=== PATIENT | male | born 1955 | race Caucasian/White ===

== ENCOUNTER 2021-02-10 06:52 | Inpatient (IN) | payer MEDICARE, MEDICAID ==
[~2021-02-10] VITALS: Ht 167.6 cm; Wt 93.2 kg
[~2021-02-10 06:52] MED LIST: ALBU8HFA IH; AMLO-257 PO; AMOX1TAB16 PO; BUDE10.26 PO; BUDESONIDE IH; LEVO150 PO; MELA3TAB89 PO; MIRT-89 PO; PRED10 PO; TIOT185 IH
[2021-02-10] MEDS ORDERED: ALBUTEROL SULFATE 5 MG/ML 20 ML NEB SOLN [BULK] NEB ONE (07:00)
[2021-02-10] MEDS ORDERED: IPRATROPIUM BROMIDE 0.5 MG/2.5 ML NEB SOLUTION NEB ONE (07:00)
[2021-02-10] MEDS ORDERED: MethylPREDNISolone SOD SUCC 125 MG/2 ML VIAL IVP ONE (07:00)
[2021-02-10 07:28] LABS: EOSINOPHILS % (AUTO) 0.4 % (1.0-6.0); HEMOGLOBIN 14.7 g/dL (13.5-17.5); LYMPHOCYTES # (AUTO) 1.3 K/uL (1.0-4.8); LYMPHOCYTES % (AUTO) 11.8 % (22.0-44.0); MEAN CORPUSCULAR HEMOGLOBIN 30.6 pg (26.0-34.0); MEAN CORPUSCULAR VOLUME 96 fL (80-100); MONOCYTES # (AUTO) 0.8 K/uL (0.1-1.0); MONOCYTES % (AUTO) 7.5 % (2.0-9.0); NEUTROPHILS # (AUTO) 8.9 K/uL (1.8-7.7); NEUTROPHILS % (AUTO) 79.3 % (40.0-70.0); PLATELET COUNT (AUTO) 168 K/uL (150-450); RED CELL DISTRIBUTION WIDTH 14.8 % (11.5-14.5)
[2021-02-10 07:38] LABS: ALANINE AMINOTRANSFERASE 15 U/L (12-78); ALBUMIN 3.6 g/dL (3.4-5.0); ALKALINE PHOSPHATASE 99 U/L (46-116); ANION GAP 2 mmol/L (8-16); ASPARTATE AMINOTRANSFERASE 12 U/L (15-37); BILIRUBIN,TOTAL 0.2 mg/dL (0.1-1.0); CALCIUM, TOTAL 9.1 mg/dL (8.8-10.5); CHLORIDE 106 mmol/L (98-107); CREATININE 0.61 mg/dL (0.60-1.30); GLOMERULAR FILTR. RATE CALC > 60 mL/min (>60); GLUCOSE,RANDOM 118 mg/dL (70-110); POTASSIUM 4.2 mmol/L (3.5-5.1); SODIUM SERUM 151 mmol/L (136-145); TOTAL PROTEIN, SERUM 7.7 g/dL (6.4-8.2); UREA NITROGEN, BLOOD 19 mg/dL (7-18)
[2021-02-10 07:42] LABS: B-TYPE NATRIURETIC PEPTIDE 53 pg/mL (0-100)
[2021-02-10] MEDS ORDERED: SODIUM CHLORIDE 0.9% 250 ML IV ONE (07:43)
[2021-02-10 07:44] LABS: CARBON DIOXIDE 43 mmol/L (22-29)
[2021-02-10] MEDS ORDERED: CefTRIAXone 1 GM/DEXTROSE 50 ML IV ONE (07:45)
[2021-02-10] MEDS ORDERED: AZITHROMYCIN 500 MG/NS 250 ML IV ONE (07:45)
[2021-02-10 07:55] LABS: COVID AG,FIA SOURCE NASOPHARYNGEAL
[2021-02-10] MEDS ORDERED: ONDANSETRON HCL 4 MG/2 ML VIAL IVP PRN ×2 (08:15→08:30)
[2021-02-10] MEDS ORDERED: ACETAMINOPHEN 325 MG TABLET PO PRN (08:15)
[2021-02-10] MEDS ORDERED: BISACODYL 10 MG RECTAL RECTAL SUPPOSITORY PR PRN (08:30)
[2021-02-10] MEDS ORDERED: DEXTROSE 5%-WATER 1,000 ML IV ONE (08:30)
[2021-02-10 08:50] LABS: THYROID STIMULATING HORMONE 3.85 uIU/mL (0.36-3.74)
[2021-02-10] MEDS: PANTOPRAZOLE SODIUM 40 MG/VIAL IVP SCH (08:54)
[2021-02-10 10:04] VITALS: BP 137/83
[2021-02-10] MEDS: MethylPREDNISolone SOD SUCC 125 MG/2 ML VIAL IVP SCH ×3 (12:00→23:04)
[2021-02-10 12:03] VITALS: BP 149/83
[2021-02-10] MEDS: HEPARIN SODIUM,PORCINE 5,000 UNITS/ML VIAL SQ SCH ×2 (17:15→23:05)
[2021-02-10 18:14] VITALS: BP 134/60
[2021-02-10 19:15] VITALS: BP 131/67
[2021-02-10 23:40] VITALS: BP 140/79
[2021-02-11 04:15] VITALS: BP 148/84
[2021-02-11] MEDS: MethylPREDNISolone SOD SUCC 125 MG/2 ML VIAL IVP SCH ×4 (05:06→23:13)
[2021-02-11 07:47] VITALS: BP 158/98
[2021-02-11] MEDS: HEPARIN SODIUM,PORCINE 5,000 UNITS/ML VIAL SQ SCH ×3 (08:45→23:13)
[2021-02-11] MEDS: PANTOPRAZOLE SODIUM 40 MG/VIAL IVP SCH (08:45)
[2021-02-11] MEDS: AZITHROMYCIN 500 MG/NS 250 ML IV SCH (08:46)
[2021-02-11 10:27] LABS: ABG METHEMOGLOBIN 0.3 % (0.0-1.5); ABG OXYGEN CONTENT 18.6 mL/dL (15.0-23.0); SOURCE, BLOOD GAS ARTERIAL; TEMPERATURE, FAHRENHEIT, BG 98.6 FAHREN (96.0-98.6)
[2021-02-11 10:33] LABS: ABG A-A DIFF O2 446.8 mmHg (10-20.0); ABG BASE EXCESS 11.2 mmol/L (-2.0-3.0); ABG CARBOXYHEMOGLOBIN 1.1 % (0.0-1.5); ABG HCO3 31.4 mmol/L (22.0-26.0); ABG OXYGEN SATURATION 94.2 % (95.0-98.0); ABG OXYHEMOGLOBIN 92.9 % (94.0-100.0); ABG PH 7.268 (7.35-7.450); ABG TOTAL HEMOGLOBIN 14.2 G/dL (12.0-18.0); PO2, ARTERIAL BG 70.8 mmHg (79.0-87.0)
[2021-02-11 10:35] LABS: ABG PCO2 85 mmHg (35-45); SITE, BLOOD GAS RT RADIAL
[2021-02-11 10:36] LABS: O2 DEVICE,BLOOD GAS HI FL CANNULA (ROOM AIR)
[2021-02-11] MEDS: CefTRIAXone SODIUM 2 GM in DEXTROSE 5%-WATER 50 ML IV SCH (11:17)
[2021-02-11] MEDS: IPRATROPIUM BROMIDE 0.5 MG/2.5 ML NEB SOLUTION NEB PRN (11:34)
[2021-02-11] MEDS: ALBUTEROL SULFATE 2.5 MG/0.5 ML NEB SOLUTION NEB PRN (11:34)
[2021-02-11 11:39] VITALS: BP 153/96
[2021-02-11 13:48] LABS: ANION GAP 1 mmol/L (8-16); CALCIUM, TOTAL 8.7 mg/dL (8.8-10.5); CARBON DIOXIDE 40 mmol/L (22-29); CHLORIDE 104 mmol/L (98-107); CREATININE 0.65 mg/dL (0.60-1.30); GLOMERULAR FILTR. RATE CALC > 60 mL/min (>60); GLUCOSE,RANDOM 129 mg/dL (70-110); POTASSIUM 4.8 mmol/L (3.5-5.1); SODIUM SERUM 145 mmol/L (136-145); UREA NITROGEN, BLOOD 23 mg/dL (7-18)
[2021-02-11 15:56] VITALS: BP 142/97
[2021-02-11 20:18] VITALS: BP 160/111
[2021-02-11 23:32] VITALS: BP 158/98
[2021-02-12] MEDS: MethylPREDNISolone SOD SUCC 125 MG/2 ML VIAL IVP SCH ×4 (05:24→23:58)
[2021-02-12 05:28] VITALS: BP 152/93
[2021-02-12 07:44] VITALS: BP 153/102
[2021-02-12] MEDS: HEPARIN SODIUM,PORCINE 5,000 UNITS/ML VIAL SQ SCH ×3 (08:57→23:57)
[2021-02-12] MEDS: AZITHROMYCIN 500 MG/NS 250 ML IV SCH (08:58)
[2021-02-12] MEDS: PANTOPRAZOLE SODIUM 40 MG/VIAL IVP SCH (08:58)
[2021-02-12] MEDS: CefTRIAXone SODIUM 2 GM in DEXTROSE 5%-WATER 50 ML IV SCH (10:33)
[2021-02-12 11:55] VITALS: BP 152/95
[2021-02-12] MEDS: FAMOTIDINE 20 MG TABLET PO SCH ×2 (12:03→20:43)
[2021-02-12] MEDS: MULTIVITAMINS WITH MINERALS, THERAPEUTIC TABLET PO SCH (12:03)
[2021-02-12 15:26] VITALS: BP 150/93
[2021-02-12 19:59] VITALS: BP 158/105
[2021-02-13] VITALS (7 sets, daily range): BP systolic 139–155; BP diastolic 82–97
[2021-02-13] MEDS: MethylPREDNISolone SOD SUCC 125 MG/2 ML VIAL IVP SCH ×4 (05:45→23:41)
[2021-02-13] MEDS: FAMOTIDINE 20 MG TABLET PO SCH ×2 (08:43→20:02)
[2021-02-13] MEDS: AZITHROMYCIN 500 MG/NS 250 ML IV SCH (08:43)
[2021-02-13] MEDS: MULTIVITAMINS WITH MINERALS, THERAPEUTIC TABLET PO SCH (08:43)
[2021-02-13] MEDS: HEPARIN SODIUM,PORCINE 5,000 UNITS/ML VIAL SQ SCH ×3 (08:44→23:40)
[2021-02-13] MEDS: PANTOPRAZOLE SODIUM 40 MG/VIAL IVP SCH (08:53)
[2021-02-13] MEDS: ALBUTEROL SULFATE 2.5 MG/0.5 ML NEB SOLUTION NEB PRN (09:54)
[2021-02-13] MEDS: IPRATROPIUM BROMIDE 0.5 MG/2.5 ML NEB SOLUTION NEB PRN (09:54)
[2021-02-13] MEDS: CefTRIAXone SODIUM 2 GM in DEXTROSE 5%-WATER 50 ML IV SCH (10:56)
[2021-02-14 04:04] VITALS: BP 152/84
[2021-02-14] MEDS: MethylPREDNISolone SOD SUCC 125 MG/2 ML VIAL IVP SCH ×2 (05:35→13:17)
[2021-02-14 07:36] VITALS: BP 144/73
[2021-02-14] MEDS: AZITHROMYCIN 500 MG/NS 250 ML IV SCH (09:00)
[2021-02-14] MEDS: MULTIVITAMINS WITH MINERALS, THERAPEUTIC TABLET PO SCH (09:02)
[2021-02-14] MEDS: FAMOTIDINE 20 MG TABLET PO SCH ×2 (09:04→20:57)
[2021-02-14] MEDS: PANTOPRAZOLE SODIUM 40 MG/VIAL IVP SCH (09:06)
[2021-02-14] MEDS: HEPARIN SODIUM,PORCINE 5,000 UNITS/ML VIAL SQ SCH ×3 (09:06→23:15)
[2021-02-14] MEDS: CefTRIAXone SODIUM 2 GM in DEXTROSE 5%-WATER 50 ML IV SCH (11:05)
[2021-02-14 11:37] VITALS: BP 159/89
[2021-02-14] MEDS: IPRATROPIUM BROMIDE 0.5 MG/2.5 ML NEB SOLUTION NEB PRN (14:48)
[2021-02-14] MEDS: ALBUTEROL SULFATE 2.5 MG/0.5 ML NEB SOLUTION NEB PRN (14:48)
[2021-02-14 15:52] VITALS: BP 155/89
[2021-02-14] MEDS: MethylPREDNISolone SOD SUCC 40 MG/ML VIAL IVP SCH ×2 (19:48→23:16)
[2021-02-14 20:02] VITALS: BP 147/85
[2021-02-15] VITALS (7 sets, daily range): BP systolic 129–167; BP diastolic 1–100
[2021-02-15] MEDS: MethylPREDNISolone SOD SUCC 40 MG/ML VIAL IVP SCH ×4 (05:25→23:32)
[2021-02-15] MEDS: ACETAMINOPHEN 325 MG TABLET PO PRN ×2 (05:33→12:07)
[2021-02-15] MEDS: MULTIVITAMINS WITH MINERALS, THERAPEUTIC TABLET PO SCH (08:19)
[2021-02-15] MEDS: FAMOTIDINE 20 MG TABLET PO SCH ×2 (08:19→20:56)
[2021-02-15] MEDS: HEPARIN SODIUM,PORCINE 5,000 UNITS/ML VIAL SQ SCH ×3 (08:20→23:32)
[2021-02-15] MEDS: PANTOPRAZOLE SODIUM 40 MG/VIAL IVP SCH (08:20)
[2021-02-15] MEDS: AZITHROMYCIN 500 MG/NS 250 ML IV SCH (08:29)
[2021-02-15] MEDS: CefTRIAXone SODIUM 2 GM in DEXTROSE 5%-WATER 50 ML IV SCH (10:24)
[2021-02-16] VITALS (8 sets, daily range): BP systolic 137–155; BP diastolic 81–106
[2021-02-16] MEDS: ALBUTEROL SULFATE 2.5 MG/0.5 ML NEB SOLUTION NEB PRN ×3 (01:33→19:58)
[2021-02-16] MEDS: IPRATROPIUM BROMIDE 0.5 MG/2.5 ML NEB SOLUTION NEB PRN ×3 (01:33→19:59)
[2021-02-16] MEDS: MethylPREDNISolone SOD SUCC 40 MG/ML VIAL IVP SCH ×3 (05:29→17:45)
[2021-02-16] MEDS: PANTOPRAZOLE SODIUM 40 MG/VIAL IVP SCH (08:53)
[2021-02-16] MEDS: MULTIVITAMINS WITH MINERALS, THERAPEUTIC TABLET PO SCH (08:53)
[2021-02-16] MEDS: FAMOTIDINE 20 MG TABLET PO SCH ×2 (08:53→20:37)
[2021-02-16] MEDS: HEPARIN SODIUM,PORCINE 5,000 UNITS/ML VIAL SQ SCH ×2 (08:53→15:18)
[2021-02-16] MEDS: AZITHROMYCIN 500 MG/NS 250 ML IV SCH (08:56)
[2021-02-16] MEDS: CefTRIAXone SODIUM 2 GM in DEXTROSE 5%-WATER 50 ML IV SCH (11:05)
[2021-02-17] MEDS: MethylPREDNISolone SOD SUCC 40 MG/ML VIAL IVP SCH ×4 (00:41→18:46)
[2021-02-17] MEDS: HEPARIN SODIUM,PORCINE 5,000 UNITS/ML VIAL SQ SCH ×3 (00:41→16:12)
[2021-02-17 04:39] VITALS: BP 144/88
[2021-02-17 07:17] VITALS: BP 148/82
[2021-02-17] MEDS: MULTIVITAMINS WITH MINERALS, THERAPEUTIC TABLET PO SCH (08:36)
[2021-02-17] MEDS: FAMOTIDINE 20 MG TABLET PO SCH ×2 (08:36→21:46)
[2021-02-17] MEDS: PANTOPRAZOLE SODIUM 40 MG/VIAL IVP SCH (08:36)
[2021-02-17] MEDS: AZITHROMYCIN 500 MG/NS 250 ML IV SCH (08:37)
[2021-02-17] MEDS: CefTRIAXone SODIUM 2 GM in DEXTROSE 5%-WATER 50 ML IV SCH (10:20)
[2021-02-17 11:06] VITALS: BP 145/90
[2021-02-17] MEDS ORDERED: HALOPERIDOL 5 MG TABLET PO ONE (11:30)
[2021-02-17 15:44] VITALS: BP 154/97
[2021-02-17 20:01] VITALS: BP 159/99
[2021-02-17 23:48] VITALS: BP 135/80
[2021-02-18] MEDS: HEPARIN SODIUM,PORCINE 5,000 UNITS/ML VIAL SQ SCH ×3 (00:37→16:14)
[2021-02-18] MEDS: MethylPREDNISolone SOD SUCC 40 MG/ML VIAL IVP SCH ×3 (00:37→12:35)
[2021-02-18 04:30] VITALS: BP 136/91
[2021-02-18 07:35] VITALS: BP 173/94
[2021-02-18 09:40] VITALS: BP 168/104
[2021-02-18] MEDS: PANTOPRAZOLE SODIUM 40 MG/VIAL IVP SCH (09:52)
[2021-02-18] MEDS: MULTIVITAMINS WITH MINERALS, THERAPEUTIC TABLET PO SCH (09:53)
[2021-02-18] MEDS: FAMOTIDINE 20 MG TABLET PO SCH (09:53)
[2021-02-18] MEDS: CefTRIAXone SODIUM 2 GM in DEXTROSE 5%-WATER 50 ML IV SCH (10:19)
[2021-02-18] MEDS: AZITHROMYCIN 500 MG/NS 250 ML IV SCH (10:19)
[2021-02-18] MEDS: IPRATROPIUM BROMIDE 0.5 MG/2.5 ML NEB SOLUTION NEB PRN (10:23)
[2021-02-18] MEDS: ALBUTEROL SULFATE 2.5 MG/0.5 ML NEB SOLUTION NEB PRN (10:23)
[2021-02-18 11:45] VITALS: BP 139/85
[2021-02-18 12:50] LABS: GLUCOMETER DEV NAME(LOC) 5N.1C; GLUCOSE,POINT OF CARE 149 MG/DL (70-110)
[2021-02-18] MEDS ORDERED: IPRAHFA IH (13:42)
[2021-02-18] MEDS ORDERED: FLUT1BLS10 IH (13:52)
== END 2021-02-18 16:40 | disposition hospice, home (50) | DRG 189 ==
LOC: EMS 06:53 → 5S 09:09
PROVIDERS: ADMIT Internal Medicine; ATTEND Internal Medicine
PROC: 5A09357 Assistance with Respiratory Ventilation, Less than 24 Consecutive Hours, Continuous Positive Airway Pressure (ICD-10-PCS; principal; 2021-02-10)
PROC: 5A09357 Assistance with Respiratory Ventilation, Less than 24 Consecutive Hours, Continuous Positive Airway Pressure (ICD-10-PCS; 2021-02-11)
PROC: 5A09357 Assistance with Respiratory Ventilation, Less than 24 Consecutive Hours, Continuous Positive Airway Pressure (ICD-10-PCS; 2021-02-12)
PROC: 5A09357 Assistance with Respiratory Ventilation, Less than 24 Consecutive Hours, Continuous Positive Airway Pressure (ICD-10-PCS; 2021-02-13)
PROC: 5A09357 Assistance with Respiratory Ventilation, Less than 24 Consecutive Hours, Continuous Positive Airway Pressure (ICD-10-PCS; 2021-02-14)
PROC: 5A09357 Assistance with Respiratory Ventilation, Less than 24 Consecutive Hours, Continuous Positive Airway Pressure (ICD-10-PCS; 2021-02-15)
PROC: 5A09357 Assistance with Respiratory Ventilation, Less than 24 Consecutive Hours, Continuous Positive Airway Pressure (ICD-10-PCS; 2021-02-16)
DX: J96.01 Acute respiratory failure with hypoxia (principal); G93.41 Metabolic encephalopathy; J44.1 Chronic obstructive pulmonary disease with (acute) exacerbation; E87.2 Acidosis; E87.0 Hyperosmolality and hypernatremia; I10 Essential (primary) hypertension; F20.9 Schizophrenia, unspecified; Z66 Do not resuscitate; F17.200 Nicotine dependence, unspecified, uncomplicated; Z20.822 Contact with and (suspected) exposure to COVID-19; E03.9 Hypothyroidism, unspecified; Z79.51 Long term (current) use of inhaled steroids; Z51.5 Encounter for palliative care; Z79.899 Other long term (current) drug therapy; Z99.81 Dependence on supplemental oxygen; Z88.8 Allergy status to other drugs, medicaments and biological substances
CPT/HCPCS: 71045; 71250; 80048; 80053; 82805; 82962; 83880; 84443; 84484; 85025; 87040; 92521; 92523; 92526; 93005; 94640; 94644; 94660; 97110; 97116; 97163; 97166; 97530; 97535; 99291; C9113; G0238; G0378; J0456; J0696; J1644; J2920; J2930; J7050; J7060; 36415-L1; 36415-TC; J7611; J7613